=== PATIENT | female | born 1985 | race African-American/Black ===

== ENCOUNTER 2021-07-31 19:26 | Inpatient (IN) | payer MEDICARE, SELFPAY ==
[2021-07-31] MEDS ORDERED: Acetaminophen 325 MG TAB PO PRN (20:24)
[2021-07-31] MEDS ORDERED: Ondansetron PF 4 MG/2 ML Vial IVP PRN (20:24)
[2021-07-31 20:32] VITALS: BMI 15.5
[2021-07-31] MEDS ORDERED: hydrALAZINE 20 MG/ML VIAL SLOW IVP PRN (21:48)
[2021-07-31] MEDS: Famotidine 20 MG TAB PO SCH (22:08)
[2021-07-31] MEDS: OCTAGAM 10% 20 GM in Admixture Fee 1 EACH IVPB SCH (23:11)
[2021-07-31] MEDS: Pyridostigmine Bromide IR 60 MG TAB PO SCH (23:12)
[2021-07-31] MEDS: cefTRIAXone\\ROCEPHIN 1 GM in Sodium Chloride 0.9% 100 ML IVPB SCH (23:12)
[2021-08-01 04:14] LABS: #Eosinphils 0.1 thou/uL (0.0-0.7); #Lymphocytes 1.8 thou/uL (1.20-3.40); #Monocytes 0.3 thou/uL (0.11-0.59); #Neutrophils 3.5 thou/uL (1.40-6.50); %Basophils 0.2 % (0.0-1.0); %Eosinophils 1.3 % (0.0-10.0); %Lymphocytes 31.2 % (21.0-51.0); %Monocytes 5.2 % (0.0-10.0); %Neutrophils 62.1 % (42.0-75.0); Hemoglobin 12.1 g/dL (12.0-16.0); Mean Corpuscular Hemoglobin 27.8 pg (27.0-31.0); Mean Corpuscular Volume 89.8 fL (78.0-98.0); Mean Platelet Volume 10.1 fL (7.4-10.4); Platelet Count 157 thou/uL (130-400); RBC Distribution Width 13.7 % (11.5-14.5); Red Blood Cell (RBC) Count 4.36 mill/uL (4.20-5.40); White Blood Cell (WBC) Count 5.7 thou/uL (4.8-10.8)
[2021-08-01 04:32] LABS: Anion Gap 10 mmol/L (10-20); BUN (Urea Nitrogen) 10 mg/dL (7.0-18.7); Calc. Creatinine Clearance 81 mL/min (70-130); Calcium 9.1 mg/dL (7.8-10.44); Carbon Dioxide 27 mmol/L (22-29); Chloride 104 mmol/L (98-107); Glucose 92 mg/dL (70-105); Potassium 4.2 mmol/L (3.5-5.1); Sodium 137 mmol/L (136-145)
[2021-08-01] MEDS: Pyridostigmine Bromide IR 60 MG TAB PO SCH ×4 (05:20→23:23)
[2021-08-01] MEDS ORDERED: Loperamide HCl 2 MG CAP PO PRN (08:06)
[2021-08-01] MEDS ORDERED: GUAIFENESIN SF SOLN 200 MG/10 ML UDCUP PO PRN (08:06)
[2021-08-01] MEDS ORDERED: Bisacodyl 5 MG TAB PO PRN (08:06)
[2021-08-01] MEDS ORDERED: Ondansetron ODT 4 MG TAB PO PRN (08:06)
[2021-08-01] MEDS ORDERED: Senokot S 8.6-50 MG TAB PO PRN (08:06)
[2021-08-01] MEDS ORDERED: HYDROcodone/Acetaminophen 5/325 mg Tablet PO PRN (08:06)
[2021-08-01] MEDS ORDERED: Artificial Tear Sol 15 ML BOT EA EYE PRN (08:06)
[2021-08-01] MEDS ORDERED: Cepastat Lozenges 1 LOZ PO PRN (08:06)
[2021-08-01] MEDS ORDERED: Sodium Chloride 0.65% Nasal 44 ML BOT EA NARE PRN (08:06)
[2021-08-01] MEDS ORDERED: Hydrocerin (Eucerin) Cream 120 gm Jar TOP PRN (08:06)
[2021-08-01] MEDS ORDERED: Calcium Carbonate 500 MG ChewTAB PO PRN (08:06)
[2021-08-01] MEDS ORDERED: Loratadine 10 MG TAB PO PRN (08:06)
[2021-08-01] MEDS ORDERED: Benzonatate 100 MG CAP PO PRN (08:06)
[2021-08-01] MEDS ORDERED: Zolpidem Tartrate 5 MG TAB PO PRN (08:06)
[2021-08-01] MEDS: predniSONE 5 MG TAB PO SCH (09:44)
[2021-08-01] MEDS: busPIRone HCl 10 MG TAB PO SCH (09:44)
[2021-08-01] MEDS: Enoxaparin Sodium 40 MG/0.4 ML SYRINGE SC SCH (09:45)
[2021-08-01] MEDS: Famotidine 20 MG TAB PO SCH ×2 (09:45→21:43)
[2021-08-01] MEDS: cefTRIAXone\\ROCEPHIN 1 GM in Sodium Chloride 0.9% 100 ML IVPB SCH (21:43)
[2021-08-01] MEDS: OCTAGAM 10% 20 GM in Admixture Fee 1 EACH IVPB SCH (23:23)
[2021-08-02 04:31] LABS: #Eosinphils 0.1 thou/uL (0.0-0.7); #Lymphocytes 1.2 thou/uL (1.20-3.40); #Monocytes 0.4 thou/uL (0.11-0.59); %Basophils 0.2 % (0.0-1.0); %Eosinophils 0.9 % (0.0-10.0); %Lymphocytes 18.1 % (21.0-51.0); %Monocytes 5.9 % (0.0-10.0); %Neutrophils 74.8 % (42.0-75.0); Hemoglobin 12.3 g/dL (12.0-16.0); Mean Corpuscular HGB CONC 32.1 g/dL (32.0-36.0); Mean Corpuscular Hemoglobin 28.9 pg (27.0-31.0); Mean Corpuscular Volume 90.1 fL (78.0-98.0); Mean Platelet Volume 9.3 fL (7.4-10.4); Platelet Count 154 thou/uL (130-400); RBC Distribution Width 13.4 % (11.5-14.5); Red Blood Cell (RBC) Count 4.28 mill/uL (4.20-5.40); White Blood Cell (WBC) Count 6.6 thou/uL (4.8-10.8)
[2021-08-02 05:00] LABS: Anion Gap 9 mmol/L (10-20); BUN (Urea Nitrogen) 14 mg/dL (7.0-18.7); Calc. Creatinine Clearance 91 mL/min (70-130); Calcium 8.8 mg/dL (7.8-10.44); Carbon Dioxide 24 mmol/L (22-29); Chloride 106 mmol/L (98-107); Glucose 93 mg/dL (70-105); Sodium 135 mmol/L (136-145)
[2021-08-02] MEDS: Pyridostigmine Bromide IR 60 MG TAB PO SCH ×4 (05:16→21:34)
[2021-08-02] MEDS: busPIRone HCl 10 MG TAB PO SCH (09:25)
[2021-08-02] MEDS: predniSONE 5 MG TAB PO SCH (09:25)
[2021-08-02] MEDS: Enoxaparin Sodium 40 MG/0.4 ML SYRINGE SC SCH (09:26)
[2021-08-02] MEDS: Famotidine 20 MG TAB PO SCH ×2 (09:26→21:33)
[2021-08-02] MEDS ORDERED: OCTAGAM 10% 20 GM in Admixture Fee 1 EACH IVPB SCH (18:00)
[2021-08-02] MEDS: cefTRIAXone\\ROCEPHIN 1 GM in Sodium Chloride 0.9% 100 ML IVPB SCH (21:33)
[2021-08-03] MEDS: Pyridostigmine Bromide IR 60 MG TAB PO SCH ×2 (05:25→12:20)
[2021-08-03 06:21] LABS: #Eosinphils 0.1 thou/uL (0.0-0.7); #Lymphocytes 1.7 thou/uL (1.20-3.40); #Monocytes 0.5 thou/uL (0.11-0.59); #Neutrophils 4.9 thou/uL (1.40-6.50); %Basophils 0.4 % (0.0-1.0); %Lymphocytes 23.1 % (21.0-51.0); %Monocytes 7.2 % (0.0-10.0); %Neutrophils 67.4 % (42.0-75.0); Hemoglobin 11.5 g/dL (12.0-16.0); Mean Corpuscular HGB CONC 31.8 g/dL (32.0-36.0); Mean Corpuscular Hemoglobin 28.8 pg (27.0-31.0); Mean Corpuscular Volume 90.6 fL (78.0-98.0); Mean Platelet Volume 9.6 fL (7.4-10.4); Platelet Count 136 thou/uL (130-400); RBC Distribution Width 13.7 % (11.5-14.5); Red Blood Cell (RBC) Count 3.98 mill/uL (4.20-5.40); White Blood Cell (WBC) Count 7.3 thou/uL (4.8-10.8)
[2021-08-03 06:40] LABS: Anion Gap 9 mmol/L (10-20); BUN (Urea Nitrogen) 16 mg/dL (7.0-18.7); Calc. Creatinine Clearance 97 mL/min (70-130); Calcium 8.6 mg/dL (7.8-10.44); Carbon Dioxide 23 mmol/L (22-29); Chloride 108 mmol/L (98-107); Glucose 87 mg/dL (70-105); Potassium 3.8 mmol/L (3.5-5.1); Sodium 136 mmol/L (136-145)
[2021-08-03 08:26] VITALS: BP 99/64; TEMP 98
[2021-08-03] MEDS: Enoxaparin Sodium 40 MG/0.4 ML SYRINGE SC SCH (08:26)
[2021-08-03] MEDS: busPIRone HCl 10 MG TAB PO SCH (08:26)
[2021-08-03] MEDS: Famotidine 20 MG TAB PO SCH (08:26)
[2021-08-03] MEDS: predniSONE 5 MG TAB PO SCH (08:27)
== END 2021-08-03 12:58 | disposition home or self-care (01) | DRG 57 ==
LOC: IMCU/EMU 19:58 → T4-A 08-02 14:51
PROVIDERS: ADMIT Internal Medicine; ATTEND Internal Medicine
DX: G70.01 Myasthenia gravis with (acute) exacerbation (principal); N30.00 Acute cystitis without hematuria; F31.9 Bipolar disorder, unspecified; F14.10 Cocaine abuse, uncomplicated; Z96.643 Presence of artificial hip joint, bilateral; F17.210 Nicotine dependence, cigarettes, uncomplicated; Z79.899 Other long term (current) drug therapy
CPT/HCPCS: 36415; 80048; 85025; 87086; J0696; J1568; J1650; J3490; J7512

== ENCOUNTER 2021-08-11 14:47 | Emergency (ER) | payer MEDICARE ==
[2021-08-11 15:26] LABS: #Eosinphils 0.1 thou/uL (0.0-0.7); #Lymphocytes 1.4 thou/uL (1.20-3.40); #Monocytes 0.3 thou/uL (0.11-0.59); #Neutrophils 2.4 thou/uL (1.40-6.50); %Eosinophils 1.3 % (0.0-10.0); %Lymphocytes 33.5 % (21.0-51.0); %Monocytes 7.5 % (0.0-10.0); %Neutrophils 56.7 % (42.0-75.0); Hemoglobin 13.4 g/dL (12.0-16.0); Mean Corpuscular HGB CONC 33.5 g/dL (32.0-36.0); Mean Corpuscular Hemoglobin 29.6 pg (27.0-31.0); Mean Corpuscular Volume 88.4 fL (78.0-98.0); Mean Platelet Volume 9.6 fL (7.4-10.4); Platelet Count 172 thou/uL (130-400); RBC Distribution Width 13.6 % (11.5-14.5); Red Blood Cell (RBC) Count 4.51 mill/uL (4.20-5.40); White Blood Cell (WBC) Count 4.1 thou/uL (4.8-10.8)
[2021-08-11 15:48] LABS: Acetaminophen Less than 6.0 mcg/mL (10.0-30.0); Alcohol Less than 10 mg/dL (Less than 10); Salicylate Less than 8.0 mg/dL (15.0-30.0)
[2021-08-11] MEDS ORDERED: Benzocaine 20% Spray 60 ML CAN ONE (15:49)
[2021-08-11] MEDS ORDERED: Pyridostigmine Bromide IR 60 MG TAB PER TUBE SCH (16:00)
[2021-08-11 16:52] LABS: Albumin 3.7 g/dL (3.5-5.0)
[2021-08-11 16:53] LABS: Chloride 108 mmol/L (98-107); Potassium 3.6 mmol/L (3.5-5.1); Sodium 138 mmol/L (136-145)
[2021-08-11 16:54] LABS: Calcium 8.7 mg/dL (7.8-10.44); Glucose 73 mg/dL (70-105)
[2021-08-11 16:55] LABS: Globulin 3.2 g/dL (2.4-3.5); Protein, Total 6.9 g/dL (6.0-8.3)
[2021-08-11 16:56] LABS: Anion Gap 13 mmol/L (10-20); Bilirubin, Total 0.5 mg/dL (0.2-1.2); Carbon Dioxide 21 mmol/L (22-29)
[2021-08-11 16:56] LABS: Actual Bicarbonate (HCO3a) 25.2 mEq/L (22-28); Analyzer IN Cardio ER; Calcium, Ionized (arterial) 1.17 mmol/L (1.12-1.30); Carboxyhemoglobin (COHb) 0.3 gm% (0.0-3.0); Hemoglobin (Hb) 13.2 g/dL (12.0-16.0); O2 Tension (PaO2), arterial 97.6 mmHg (80.0-100.0); Potassium - ABG Lab 3.29 mmol/L (3.70-5.30); Puncture Site LBA; pH, Arterial 7.43 (7.35-7.45)
[2021-08-11 16:57] LABS: Alkaline Phosphatase 34 U/L (40-110)
[2021-08-11 16:58] LABS: Calc. Creatinine Clearance 0 mL/min (70-130)
[2021-08-11 16:59] LABS: BUN (Urea Nitrogen) 9 mg/dL (7.0-18.7)
[2021-08-11 17:00] LABS: AST (SGOT) 14 U/L (5-34)
[2021-08-11 17:12] LABS: ALT (SGPT) 11 U/L (8-55)
[2021-08-11 19:47] LABS: SARS-CoV-2 NAA Rapid Test Not Detected (NotDetected)
== END 2021-08-11 21:02 | disposition short-term general hospital (02) ==
LOC: ERS 14:47
DX: G70.01 Myasthenia gravis with (acute) exacerbation (principal); M81.0 Age-related osteoporosis without current pathological fracture; I95.9 Hypotension, unspecified; F17.210 Nicotine dependence, cigarettes, uncomplicated; Z20.822 Contact with and (suspected) exposure to COVID-19; Z79.899 Other long term (current) drug therapy
CPT/HCPCS: 36600; 71045; 74018; 80307; 82805; 99285; U0002; 36415; 80053; 84443; 85025

== ENCOUNTER 2024-07-24 14:57 | Inpatient (IN) | payer MEDICARE, MEDICAID ==
[2024-07-24] MEDS ORDERED: Ketorolac Tromethamine 30 MG (1 mL) VIAL ONE (15:25)
[2024-07-24 15:33] LABS: #Basophils Less than 0.03 10x3/uL (0.0-0.2); %Basophils 0.1 % (0.0-1.0); %Eosinophils 0.6 % (0.0-10.0); %Lymphocytes 28.5 % (21.0-51.0); %Monocytes 6.2 % (0.0-10.0); %Neutrophils 64.1 % (42.0-75.0); Hematocrit 30.9 % (36.0-47.0); Hemoglobin 10.1 g/dL (12.0-16.0); Mean Corpuscular HGB CONC 32.7 g/dL (32.0-36.0); Mean Corpuscular Hemoglobin 27.3 pg (27.0-31.0); Mean Corpuscular Volume 83.5 fL (78.0-98.0); Platelet Count 213 10x3/uL (130-400); RBC Distribution Width 15.1 % (11.5-14.5)
[2024-07-24 15:41] LABS: BHCG - Serum Negative (NEGATIVE); Pregs Control Background? CLEAR/WHITE (CLR/WHITE); Pregs Control Bar Appear? YES (CONTROL BAR)
[2024-07-24 16:09] LABS: Lipase 59 U/L (8-78)
[2024-07-24 16:09] LABS: Bacteria/HPF None Seen HPF (None Seen); Bilirubin Negative (Negative); Blood, Urine Negative (Negative); CAUTI Indications for Culture Alt mental st,lethar; Clarity Clear (Clear); Glucose, Urine (Dipstick) Normal (Negative); Ketone, Urine Negative (Negative); Leukocyte 75 Leu/uL (Negative); Nitrite Negative (Negative); Protein, Urine (Dipstick) Negative (Neg-Trace); RBC/HPF 0-3 HPF (0-3); Specific Gravity, Urine 1.019 (1.002-1.036); Squamous Epithelial 0-3 HPF (0-3); Urobilinogen Normal mg/dL (Less than 2); WBC/HPF 0-3 HPF (0-3)
[2024-07-24 16:10] LABS: Urine Culture Reflex No No
[2024-07-24 16:11] LABS: ALT (SGPT) 8 U/L (8-55); AST (SGOT) 16 U/L (5-34); Albumin 2.5 g/dL (3.5-5.0); Alkaline Phosphatase 49 U/L (40-110); Anion Gap 13 mmol/L (10-20); BUN (Urea Nitrogen) 12 mg/dL (7.0-18.7); Bilirubin, Total 0.1 mg/dL (0.2-1.2); CK (CPK) 303 U/L (29-168); Calc. Creatinine Clearance 0 mL/min (70-130); Calcium 7.9 mg/dL (7.8-10.44); Carbon Dioxide 22 mmol/L (22-29); Chloride 107 mmol/L (98-107); Estimated GFR 111; Globulin 3.8 g/dL (2.4-3.5); Glucose 98 mg/dL (70-105); Potassium 2.7 mmol/L (3.5-5.1); Protein, Total 6.3 g/dL (6.0-8.3); Sodium 139 mmol/L (136-145)
[2024-07-24 16:12] LABS: Acetaminophen Less than 10 mcg/mL (Less than 10); Alcohol Less than 10.0 mg/dL (Less than 10); Salicylate Less than 8.0 mg/dL (Less than 8.0)
[2024-07-24 16:16] LABS: Amphetamine Not Detected (NotDetected); Barbiturates Screen Not Detected (NotDetected); Benzodiazepine Screen Detected (NotDetected); Cocaine Metabolite Screen Not Detected (NotDetected); Methadone Not Detected (NotDetected); Methamphetamine Not Detected (NotDetected); Opiate Screen Not Detected (NotDetected); Oxycodone Screen Not Detected (NotDetected); Phencyclidine (PCP) Not Detected (NotDetected); THC/Cannabinoid Screen Detected (NotDetected); Tricyclic Screen Not Detected (NotDetected)
[2024-07-24] MEDS ORDERED: Potassium Chloride 20 MEQ TAB ONE (16:49)
[2024-07-24] MEDS ORDERED: NS 0.9% w/ 20 MEQ KCL 1,000 ML ONE (16:50)
[2024-07-24] MEDS ORDERED: Sodium Chloride 0.9% 100 ML ONE (16:50)
[2024-07-24] MEDS ORDERED: cefTRIAXone (ROCEPHIN) 2 GM VIAL ONE (16:50)
[2024-07-24] MEDS ORDERED: Ondansetron ODT 4 MG TAB PO PRN (17:05)
[2024-07-24] MEDS ORDERED: Ondansetron PF 4 MG/2 ML Vial IVP PRN (17:05)
[2024-07-24 17:41] LABS: Magnesium 1.5 mg/dL (1.6-2.6)
[2024-07-24 19:06] VITALS: BMI 24.1
[2024-07-24 20:39] LABS: Actual Bicarbonate (HCO3v) 25.7 mEq/L (22-28); Calcium, Ionized (venous) 1.05 mmol/L (1.16-1.32); Chloride (VBG) 104 mmol/L (98-106); Hematocrit-VBG 38 % (36.0-47.0); Hemoglobin (Hb) 12.9 g/dL (11.7-15.5); Potassium (VBG) 3.34 mmol/L (3.70-5.30); Sodium 139 mmol/L (133-146); pH (venous) 7.369 (7.32-7.43)
[2024-07-24] MEDS: Pyridostigmine Bromide IR 60 MG TAB PO SCH (20:54)
[2024-07-24] MEDS: Magnesium 2 GM/50 ML(in water) 2 GM in Premix 1 BAG IVPB SCH (20:59)
[2024-07-24] MEDS: Acetaminophen 325 MG TAB PO SCH (20:59)
[2024-07-24] MEDS: traMADol HCl 50 MG TAB PO PRN (22:14)
[2024-07-25 04:20] LABS: Influenza A by NAA Not Detected (NotDetected); Influenza B by NAA Not Detected (NotDetected); RSV by NAA Not Detected (NotDetected); SARS-CoV-2 NAA Rapid Test Not Detected (NotDetected)
[2024-07-25] MEDS: Enoxaparin 40 MG (0.4 mL) SYRINGE SC SCH (09:50)
[2024-07-25] MEDS: Pantoprazole DR 40 MG TAB PO SCH (09:50)
[2024-07-25 10:31] LABS: #Basophils Less than 0.03 10x3/uL (0.0-0.2); %Basophils 0.2 % (0.0-1.0); %Eosinophils 2.1 % (0.0-10.0); %Lymphocytes 28.1 % (21.0-51.0); %Monocytes 5.6 % (0.0-10.0); Hematocrit 33.7 % (36.0-47.0); Hemoglobin 10.8 g/dL (12.0-16.0); Mean Corpuscular Hemoglobin 27.1 pg (27.0-31.0); Mean Corpuscular Volume 84.5 fL (78.0-98.0); Platelet Count 231 10x3/uL (130-400); Red Blood Cell (RBC) Count 3.99 mill/uL (4.20-5.40)
[2024-07-25 10:44] LABS: Anion Gap 11 mmol/L (10-20); BUN (Urea Nitrogen) 8 mg/dL (7.0-18.7); Calc. Creatinine Clearance 151 mL/min (70-130); Carbon Dioxide 22 mmol/L (22-29); Chloride 107 mmol/L (98-107); Estimated GFR 117; Glucose 109 mg/dL (70-105); Potassium 3.5 mmol/L (3.5-5.1); Sodium 136 mmol/L (136-145)
[2024-07-25] MEDS ORDERED: ALPRAZolam 0.25 MG TAB PO PRN (11:23)
[2024-07-25] MEDS ORDERED: IMMUNE GLOBULIN IVPB SCH ×2 (12:00→12:30)
[2024-07-25] MEDS ORDERED: Pyridostigmine Bromide IR 60 MG TAB PO SCH (12:00)
[2024-07-25] MEDS: diphenhydrAMINE 25 MG CAP PO SCH (12:49)
[2024-07-25] MEDS: Acetaminophen 500 MG TAB PO SCH (12:49)
[2024-07-25] MEDS: Pyridostigmine Bromide IR 60 MG TAB PO SCH (12:50)
[2024-07-25] MEDS: predniSONE 20 MG TAB PO SCH (12:50)
[2024-07-25] MEDS: Privigen 40 GM in Premix 1 BAG IVPB SCH (13:48)
[2024-07-25] MEDS: cefTRIAXone\\ROCEPHIN 1 GM in Sodium Chloride 0.9% 100 ML IVPB SCH (15:55)
[2024-07-26 10:35] LABS: #Basophils Less than 0.03 10x3/uL (0.0-0.2); %Basophils 0.2 % (0.0-1.0); %Eosinophils 1.2 % (0.0-10.0); %Lymphocytes 21.1 % (21.0-51.0); %Monocytes 5.6 % (0.0-10.0); %Neutrophils 70.3 % (42.0-75.0); Hematocrit 34.8 % (36.0-47.0); Hemoglobin 11.2 g/dL (12.0-16.0); Mean Corpuscular HGB CONC 32.2 g/dL (32.0-36.0); Mean Corpuscular Hemoglobin 26.8 pg (27.0-31.0); Mean Corpuscular Volume 83.3 fL (78.0-98.0); Mean Platelet Volume 11.7 fL (7.4-10.4); Platelet Count 199 10x3/uL (130-400); RBC Distribution Width 14.9 % (11.5-14.5); Red Blood Cell (RBC) Count 4.18 mill/uL (4.20-5.40)
[2024-07-26 11:07] LABS: Anion Gap 11 mmol/L (10-20); BUN (Urea Nitrogen) 13 mg/dL (7.0-18.7); Calc. Creatinine Clearance 130 mL/min (70-130); Calcium 8.8 mg/dL (7.8-10.44); Carbon Dioxide 24 mmol/L (22-29); Chloride 106 mmol/L (98-107); Estimated GFR 107; Glucose 79 mg/dL (70-105); Potassium 3.7 mmol/L (3.5-5.1); Sodium 137 mmol/L (136-145)
[2024-07-26 15:53] VITALS: BP 111/76; TEMP 98.3
== END 2024-07-26 15:34 | disposition home or self-care (01) | DRG 57 ==
LOC: EDBD 14:57 → ERS 14:57 → 2NO 17:05 → ERS 18:20 → OBSVTOIN 07-25 11:55 → T4-B 07-25 23:07
PROVIDERS: ADMIT Internal Medicine; ATTEND Hospitalist
DX: G70.00 Myasthenia gravis without (acute) exacerbation (principal); F17.210 Nicotine dependence, cigarettes, uncomplicated; F41.9 Anxiety disorder, unspecified; F31.9 Bipolar disorder, unspecified; F14.10 Cocaine abuse, uncomplicated; E87.6 Hypokalemia; E83.42 Hypomagnesemia; Z79.899 Other long term (current) drug therapy; Z96.642 Presence of left artificial hip joint; Z96.641 Presence of right artificial hip joint
CPT/HCPCS: 0241U; 36415; 70450; 71045; 74176; 80048; 80053; 80306; 80307; 81001; 82550; 82805; 83690; 83735; 84145; 84443; 84703; 85025; 87040; 96361; 96365; 96368; 96372; 96375; G0378; J0696; J1459; J1650; J1885; J3475; J3480; J7512